=== PATIENT | male | born 2000 | race Caucasian/White ===

== ENCOUNTER 2022-06-09 12:49 | Outpatient (CLI) | payer BC ==
[2022-06-09 13:58] LABS: #Eosinphils 0.1 10x3/uL (0.0-0.5); #Monocytes 0.9 10x3/uL (0.0-1.1); #Neutrophils 3.3 10x3/uL (1.5-8.4); %Basophils 0.5 % (0.0-2.0); %Eosinophils 2.1 % (0.0-6.0); %Monocytes 14.8 % (0.0-10.0); %Neutrophils 54.3 % (40.0-75.0); Hemoglobin 15.5 g/dL (13.5-17.5); Mean Corpuscular HGB CONC 34.6 g/dL (32.0-36.0); Mean Corpuscular Volume 89.6 fl (81.2-95.1); Mean Platelet Volume 12.3 fl (7.4-10.4); Platelet Count 153 10x3/uL (150-450); White Blood Cell (WBC) Count 6.1 10x3/uL (3.5-10.5)
== END 2022-06-09 12:50 | disposition home or self-care (01) ==
LOC: LABBT 12:49
PROVIDERS: ATTEND Orthopaedic Surgery
DX: Z01.812 Encounter for preprocedural laboratory examination (principal); S83.511A Sprain of anterior cruciate ligament of right knee, initial encounter; S83.281A Other tear of lateral meniscus, current injury, right knee, initial encounter
CPT/HCPCS: 85025

== ENCOUNTER 2022-06-12 05:42 | Day surgery (SDC) | payer BC ==
[2022-06-09 15:58] VITALS: BMI 23.6
[2022-06-12] MEDS ORDERED: fentaNYL PF 100 MCG/2 ML SYRINGE ONE (06:08)
[2022-06-12] MEDS ORDERED: Midazolam HCl 2 mg/2 ml Vial ONE (06:08)
[2022-06-12] MEDS ORDERED: Lidocaine 1% PF 5 ML VIAL ONE (06:50)
[2022-06-12] MEDS ORDERED: CEFAZOLIN 2 GM VIAL ONE (06:55)
[2022-06-12] MEDS ORDERED: Sodium Chloride 0.9% 100 ML ONE (06:55)
[2022-06-12] MEDS ORDERED: Fentanyl 100 MCG/2 ML VIAL SLOW IVP PRN (08:50)
[2022-06-12] MEDS ORDERED: Promethazine HCl 25 MG/ML VIAL IM PRN (09:00)
[2022-06-12] MEDS ORDERED: Ondansetron PF 4 MG/2 ML Vial IVP PRN (09:00)
[2022-06-12] MEDS ORDERED: Ropivacaine 0.2% 550 ML 550 ML NERVE BLCK SCH (09:00)
[2022-06-12] MEDS ORDERED: Zolpidem Tartrate 5 MG TAB PO PRN (09:00)
[2022-06-12] MEDS ORDERED: Meperidine HCl/PF 25 MG/ML VIAL ONE (09:45)
[2022-06-12] MEDS ORDERED: FENTANYL 50 MCG/ML 1 ML VIAL ONE ×2 (09:56→10:08)
[2022-06-12] MEDS ORDERED: HYDROcodone/Acetaminophen 5/325 mg Tablet ONE ×2 (11:38→13:57)
[2022-06-12] MEDS ORDERED: Promethazine HCl 25 MG/ML VIAL ONE (11:39)
== END 2022-06-12 14:19 | disposition home or self-care (01) ==
LOC: SDC 05:42
PROVIDERS: ATTEND Orthopaedic Surgery
PROC: 0MRN47Z Replacement of Right Knee Bursa and Ligament with Autologous Tissue Substitute, Percutaneous Endoscopic Approach (ICD-10-PCS; principal; 2022-06-12)
DX: S83.511A Sprain of anterior cruciate ligament of right knee, initial encounter (principal); M23.8X1 Other internal derangements of right knee; X58.XXXA Exposure to other specified factors, initial encounter; Y93.67 Activity, basketball
CPT/HCPCS: A4306; C1713; J2175; J2250; J2550; J2795; J3010; J3490